=== PATIENT | male | born 1995 | race Caucasian/White ===

== ENCOUNTER → 2022-05-19 | Emergency (ER) | payer BC, OTHER ==
[~2022-05-19] VITALS: Ht 177.8 cm; Wt 72.6 kg
[~2022-05-19] MED LIST: ACETAMINOPHEN 500 MG TABLET ONE; ACETAMINOPHEN 500 MG TABLET PO ONE; CIPR-278 PO; IBUP-1493 PO; LIDOCAINE HCL 1% MDV 50ML VIAL ONE; NEOMY SULF/BACITRA/POLYMYXIN B 1 EACH PACKET TP ONE
[2022-05-19 19:30] VITALS: BP 123/100
== END | disposition home or self-care (01) ==
LOC: EDH 18:23
DX: S90.452A Superficial foreign body, left great toe, initial encounter (principal); W45.8XXA Other foreign body or object entering through skin, initial encounter; Y93.89 Activity, other specified; Y92.89 Other specified places as the place of occurrence of the external cause; Y99.8 Other external cause status
CPT/HCPCS: 99284; 73630; 73620; J3490